=== PATIENT | female | born 1985 ===

== ENCOUNTER 2016-09-01 18:11 | Emergency (ER) | payer MEDICAID ==
[2016-09-01 18:19] VITALS: BP 94/66; PULSE 75; RESP 22; TEMP 98.4; O2SAT 96
--- NOTE | 2016-09-01 18:45 | ED PDOC ---
HPI: Female Pain Time Seen by Provider: 09/01/16 18:26 Chief Complaint (Nursing): Abdominal Pain Chief Complaint (Provider): Pelvic Pain History Per: Patient History/Exam Limitations: no limitations Onset/Duration Of Symptoms: Hrs (just prior to arrival) Current Symptoms Are (Timing): Still Present Severity: Moderate Quality Of Discomfort: Cramping Associated Symptoms: denies: Fever, Back Pain, Other (no syncope) Additional Complaint(s): Sharon Caceres is a 31 year old female, with an EGA of 8 weeks by LMP () and a past medical history inclusive of multiple previous miscarriages (2 early term, 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 Pain, described as a non-radiating cramping sensation, was reportedly severe enough to wake her from a nap. Although she denies fever, back pain, syncope or vaginal bleeding, she does report having noted some cloudiness to her urine. No prior history of ectopic . PMD: Dr. Brown Past Medical History Reviewed: Historical Data, Nursing Documentation, Vital Signs Vital Signs: Last Vital Signs Temp 98.4 F 09/01/16 18:15 Pulse 75 09/01/16 18:15 Resp 22 09/01/16 18:15 BP 94/66 L 09/01/16 18:15 Pulse Ox 96 09/01/16 18:15 - Medical History PMH: Asthma, Rheumatoid Arthritis Other PMH: multiple previous miscarriages - Surgical History Other surgeries: late term termination of - Family History Family History: States: Unknown Family Hx - Home Medications Home Medications: Ambulatory Orders Medication Instructions Recorded Ciprofloxacin HCl [Cipro] 500 mg PO BID #0 tab 11/23/14 Famotidine [Pepcid] 20 mg PO DAILY #0 tab 11/23/14 Metronidazole [Flagyl] 500 mg PO TID #0 tab 11/23/14 Ondansetron ODT [Zofran ODT] 4 mg PO Q8H PRN #0 odt 11/23/14 oxyCODONE/Acetaminophen [Percocet 1 ea PO Q4 PRN #0 tab 11/23/14 5/325 mg Tab] RX: Erythromycin 0.5% 1 applic OS Q6 #1 tube 07/20/15 [Erythromycin] ALPRAZolam [Xanax] 1 mg PO DAILY #14 tab 05/17/16 - Allergies Allergies/Adverse Reactions: Allergies Allergy/AdvReac Type Severity Reaction Status Date / Time acetaminophen [From Vicodin] Allergy Mild hives Verified 07/20/15 21:29 hydrocodone bitartrate Allergy Mild hives Verified 07/20/15 21:29 [From Vicodin] Review of Systems ROS Statement: Except As Marked, All Systems Reviewed And Found Negative Constitutional: Negative for: Fever Cardiovascular: Negative for: Other (no syncope) Genitourinary Female: Positive for: Pelvic Pain (left-sided). Negative for: Vaginal Bleeding Musculoskeletal: Negative for: Back Pain Physical Exam - Reviewed Nursing Documentation Reviewed: Yes Vital Signs Reviewed: Yes - Physical Exam Appears: Positive for: Non-toxic, No Acute Distress Head Exam: Positive for: ATRAUMATIC, NORMOCEPHALIC Skin: Positive for: Normal Color, Warm, Dry Eye Exam: Positive for: Normal appearance, PERRL ENT: Positive for: Normal ENT Inspection Neck: Positive for: Normal, Painless ROM, Supple Cardiovascular/Chest: Positive for: Regular Rate, Rhythm. Negative for: Murmur Respiratory: Positive for: Normal Breath Sounds. Negative for: Respiratory Distress Gastrointestinal/Abdominal: Positive for: Soft, Tenderness (left lower pelvic) Back: Positive for: Normal Inspection Neurologic/Psych: Positive for: Alert, Oriented - ECG O2 Sat by Pulse Oximetry: 96 (RA) Pulse Ox Interpretation: Normal Medical Decision Making Medical Decision Makin:26 Initial Impression: pelvic pain, will w/u for ectopic Initial Plan: * OB Transvaginal * Labs * Beta HCG * Upreg * Udip * Reevaluation 19:00 Patient will be endorsed over to Juan Urbina MD, pending remainder of ED workup, reevaluation and final disposition. Scribe Attestation: Documented by Sangeetha Ulrich, acting as a scribe for Anatoliy Liao III, DO. Provider Scribe Attestation: All medical record entries made by the Scribe were at my direction and personally dictated by me. I have reviewed the chart and agree that the record accurately reflects my personal performance of the history, physical exam, medical decision making, and the department course for this patient. I have also personally directed, reviewed, and agree with the discharge instructions and disposition. Disposition - Clinical Impression Clinical Impression: Threatened - Patient ED Disposition Is Patient to be Admitted: Transfer of Care - Disposition Disposition: Transfer of Care Disposition Time: 19:00 Condition: GOOD
[2016-09-01 19:10] LABS: BASO # 0.1 K/uL (0.0-0.2); BASO % 0.8 % (0.0-2.0); EOS # 0.1 K/uL (0.0-0.7); EOS % 1.6 % (0.0-4.0); LYMPH # 1.9 K/uL (1.0-4.3); LYMPH % 21.1 % (20.0-40.0); MEAN CELL VOLUME 91.6 fl (81.0-99.0); MEAN CORPUSCULAR HGB CONC 32.7 g/dL (33.0-37.0); MEAN PLATELET VOLUME 8.2 fl (7.2-11.7); MONO # 0.8 K/uL (0.0-0.8); MONO % 8.7 % (0.0-10.0); NEUT # 6.1 K/uL (1.8-7.0); NEUT % 67.8 % (50.0-75.0); RED CELL DISTRIBUTION WIDTH 13.3 % (11.5-14.5)
[2016-09-01 19:20] LABS: ALB/GLOB RATIO 1.3 (1.0-2.1); ALKALINE PHOSPHATASE 40 U/L (38-126); ALT/SGPT 18 U/L (9-52); AST/SGOT 16 U/L (14-36); BILIRUBIN,TOTAL 0.2 mg/dl (0.2-1.3); BLOOD UREA NITROGEN 15 mg/dl (7-17); CALCIUM 9.3 mg/dL (8.4-10.2); CARBON DIOXIDE 23 mmol/L (22-30); CHLORIDE 106 mmol/L (98-107); GFR AFRICAN-AMERICAN > 60; GLUCOSE,RANDOM 79 mg/dL (65-105); POTASSIUM 4.3 MMOL/L (3.6-5.0); SODIUM 142 mmol/l (132-148); TOTAL PROTEIN 6.7 G/DL (6.3-8.2)
--- NOTE | 2016-09-01 19:41 | ED PDOC ---
- Laboratory Results Result Diagrams: 09/01/16 19:05 09/01/16 19:05 Urine POC: Positive Urine dip results: Negative for: Leukocyte Esterase, Blood, Nitrate, Ketones, Glucose, Bilirubin, Protein - ECG O2 Sat by Pulse Oximetry: 96 (RA) Pulse Ox Interpretation: Normal - CT Scan/US OB Transvaginal Other Rad Studies (CT/US): Read By Radiologist, Radiology Report Reviewed Other Rad Interpretation: see MDM Medical Decision Making Medical Decision Makin:00 Patient endorsed over to me by Anatoliy Liao III DO, pending US, labs, reevaluation and final disposition. 19:57 US report reviewed: FINDINGS: Uterus: Uterus measures approximately 6.4 x 4.3 x 5.2 cm. Cervix measures approximately 3.3 cm in length. Endometrium measures approximately 1.5 mm in width. Gestation: There is a single gestational sac in the uterus.Gestational sac has mean diameter 4.1 mm. No sac and pole are not yet visible. Right ovary: Right ovary measures approximately 2.88 x 1.49 x 2.22 cm. There are multiple small follicles. There is expected blood flow on Doppler imaging Left ovary: Left ovary measures approximately 3.97 x 2.22 x 3.8 the centimeters. There are multiple small follicles. There is a corpus luteum cyst. There is expected blood flow on Doppler imaging IMPRESSION: Findings suggest intrauterine gestation too early to date; no ectopic gestation identified. Followup suggested to document development of a pole Pending urine studies. 20:37 Upreg is (+), Udip is (-). 20:50 Upon provider reevaluation patient is feeling better, is medically stable, and requires no further treatment in the ED at this time. Patient will be discharged home. Counseling was provided and all questions were answered regarding diagnosis and need for follow up with her MANAGER SPA in 2 days. There is agreement to discharge plan. Return if symptoms persist or worsen. Clinical Impression: , abdominal pain during Scribe Attestation: Documented by Sangeetha Ulrich, acting as a scribe for Juan Urbina MD. Provider Scribe Attestation: All medical record entries made by the Scribe were at my direction and personally dictated by me. I have reviewed the chart and agree that the record accurately reflects my personal performance of the history, physical exam, medical decision making, and the department course for this patient. I have also personally directed, reviewed, and agree with the discharge instructions and disposition. Disposition Counseled Patient/Family Regarding: Studies Performed, Diagnosis, Need For Followup - Clinical Impression Clinical Impression: , Abdominal pain during - POA Present On Arrival: None - Disposition Referrals: [facility] [Outside] [facility] [Outside] Disposition: Routine/Home Disposition Time: 20:25 Condition: GOOD Additional Instructions: follow up with your primary advanced manager in 2 days. return to the ED with any worsening or concerning symptoms. take vitamins. Instructions: Abdominal Pain in (ED) Forms: [facility] ED School/Work Excuse
--- NOTE | 2016-09-01 19:58 | US ---
EXAM: US , Transvaginal CLINICAL HISTORY: 31 years old, female; Pain; Other: Pelvic pain; Gestational age or lmp: 07/07/16; Additional info: 8 wks pelvic pain, HX miscarriages; beta hCG 1066.1 TECHNIQUE: Real-time transvaginal obstetrical ultrasound of the maternal pelvis and a first trimester with image documentation. Transvaginal imaging was used for better evaluation of the fetus and adnexa. EXAM DATE/TIME: 09/01/2016 6:36 PM COMPARISON: There are no prior studies for comparison. FINDINGS: Uterus: Uterus measures approximately 6.4 x 4.3 x 5.2 cm. Cervix measures approximately 3.3 cm in length. Endometrium measures approximately 1.5 mm in width. Gestation: There is a single gestational sac in the uterus.Gestational sac has mean diameter 4.1 mm. No sac and pole are not yet visible. Right ovary: Right ovary measures approximately 2.88 x 1.49 x 2.22 cm. There are multiple small follicles. There is expected blood flow on Doppler imaging Left ovary: Left ovary measures approximately 3.97 x 2.22 x 3.8 the centimeters. There are multiple small follicles. There is a corpus luteum cyst. There is expected blood flow on Doppler imaging IMPRESSION: Findings suggest intrauterine gestation too early to date; no ectopic gestation identified Followup suggested to document development of a pole
== END 2016-09-01 20:51 | disposition home or self-care (01) ==
LOC: H.ER 18:11
DX: O26.891 Other specified pregnancy related conditions, first trimester (principal); R10.2 Pelvic and perineal pain

== ENCOUNTER 2016-10-02 09:11 | Emergency (ER) | payer MEDICAID ==
[2016-10-02] MEDS ORDERED: Sodium Chloride 0.9% 1,000 ML IV STA (09:38)
[2016-10-02 09:40] VITALS: BMI 18.3
--- NOTE | 2016-10-02 09:43 | ED PDOC ---
HPI: Female Pain Time Seen by Provider: 10/02/16 09:15 Chief Complaint (Provider): Vomiting History Per: Patient History/Exam Limitations: no limitations Onset/Duration Of Symptoms: Days (2) Current Symptoms Are (Timing): Still Present Severity: Mild Additional Complaint(s): Pt. with vomiting, nausea for 2 days. Diarrhea off and on as well. Both nonbloody. Feels weak generally from it. No chest pain, abd/pelvic pain, vaginal bleeding, dysuria, dyspnea, new food or drinks, cough, congestion, runny nose, headaches. No fever. No travel. Is preg. Past Medical History Reviewed: Historical Data, Nursing Documentation, Vital Signs - Medical History PMH: Asthma - Surgical History Surgical History: No Surg Hx - Family History Family History: States: Unknown Family Hx - Social History Current smoker - smoking cessation education provided: No Alcohol: None Drugs: Denies - Home Medications Home Medications: Ambulatory Orders Medication Instructions Recorded Ciprofloxacin HCl [Cipro] 500 mg PO BID #0 tab 11/23/14 Famotidine [Pepcid] 20 mg PO DAILY #0 tab 11/23/14 Metronidazole [Flagyl] 500 mg PO TID #0 tab 11/23/14 Ondansetron ODT [Zofran ODT] 4 mg PO Q8H PRN #0 odt 11/23/14 oxyCODONE/Acetaminophen [Percocet 1 ea PO Q4 PRN #0 tab 11/23/14 5/325 mg Tab] Erythromycin 0.5% [Erythromycin] 1 applic OS Q6 #1 tube 07/20/15 ALPRAZolam [Xanax] 1 mg PO DAILY #14 tab 05/17/16 - Allergies Allergies/Adverse Reactions: Allergies Allergy/AdvReac Type Severity Reaction Status Date / Time acetaminophen [From Vicodin] Allergy Mild hives Verified 10/02/16 09:44 hydrocodone bitartrate Allergy Mild hives Verified 10/02/16 09:44 [From Vicodin] Review of Systems ROS Statement: Except As Marked, All Systems Reviewed And Found Negative Gastrointestinal: Positive for: Nausea, Vomiting, Diarrhea Physical Exam - Reviewed Nursing Documentation Reviewed: Yes Vital Signs Reviewed: Yes - Physical Exam Appears: Positive for: Well, Non-toxic, No Acute Distress Head Exam: Positive for: ATRAUMATIC, NORMAL INSPECTION, NORMOCEPHALIC Skin: Positive for: Normal Color, Warm, DRY Eye Exam: Positive for: EOMI, Normal appearance, PERRL ENT: Positive for: Normal ENT Inspection Neck: Positive for: Normal, Painless ROM Cardiovascular/Chest: Positive for: Regular Rate, Rhythm Respiratory: Positive for: CNT, Normal Breath Sounds Gastrointestinal/Abdominal: Positive for: Normal Exam, Bowel Sounds, Soft. Negative for: Tenderness Back: Positive for: Normal Inspection. Negative for: L CVA Tenderness, R CVA Tenderness Extremity: Positive for: Normal ROM. Negative for: Tenderness, Pedal Edema Neurologic/Psych: Positive for: Alert, Oriented - Laboratory Results Result Diagrams: 10/02/16 10:00 10/02/16 10:00 Interpretation Of Abn Labs: no acute - Progress ED Course And Treament: 942: On 09/01/16 pt. here and had pelvic US. SIUP. No pelvic or abd pain today. Will tx for vomiting and evaluate lytes. 1121: Stable. AAOx3. Feels much better. Tolerated PO. No nausea, vomit, diarrhea, pain. US bedside showed hr 150 approx. FU with pcp/obgyn. Continue diclegis. Disposition - Clinical Impression Clinical Impression: Hyperemesis gravidarum - Patient ED Disposition Is Patient to be Admitted: No Counseled Patient/Family Regarding: Studies Performed, Diagnosis, Need For Followup - Disposition [facility]errals[facility] - 10/03/16 Disposition: Routine/Home Disposition Time: 11:22 Condition: STABLE Additional Instructions: Return if not better in 3 days. Instructions: Hyperemesis Gravidarum (ED)
[2016-10-02 09:48] VITALS: BP 106/65; PULSE 61; RESP 20; TEMP 98; O2SAT 99
[2016-10-02 10:23] LABS: BASO % 0.3 % (0.0-2.0); EOS # 0.1 K/uL (0.0-0.7); EOS % 1.2 % (0.0-4.0); HEMATOCRIT 37.3 % (34.0-47.0); LYMPH # 1.4 K/uL (1.0-4.3); LYMPH % 13.8 % (20.0-40.0); MEAN CORPUSCULAR HEMOGLOBIN 30.9 pg (27.0-31.0); MEAN PLATELET VOLUME 8.4 fl (7.2-11.7); MONO # 0.7 K/uL (0.0-0.8); NEUT # 8.2 K/uL (1.8-7.0); NEUT % 77.7 % (50.0-75.0); RED CELL DISTRIBUTION WIDTH 13.7 % (11.5-14.5); WHITE BLOOD COUNT 10.5 K/uL (4.8-10.8)
[2016-10-02 10:44] LABS: ALB/GLOB RATIO 1.3 (1.0-2.1); ALKALINE PHOSPHATASE 34 U/L (38-126); ALT/SGPT 38 U/L (9-52); AST/SGOT 30 U/L (14-36); BILIRUBIN,TOTAL 0.6 mg/dl (0.2-1.3); BLOOD UREA NITROGEN 8 mg/dl (7-17); CALCIUM 9.2 mg/dL (8.4-10.2); CARBON DIOXIDE 22 mmol/L (22-30); CHLORIDE 106 mmol/L (98-107); GFR AFRICAN-AMERICAN > 60; GLUCOSE,RANDOM 85 mg/dL (65-105); SODIUM 138 mmol/l (132-148)
== END 2016-10-02 11:34 | disposition home or self-care (01) ==
LOC: H.ER 09:11
DX: O21.0 Mild hyperemesis gravidarum (principal); J45.909 Unspecified asthma, uncomplicated

== ENCOUNTER 2017-01-22 13:18 | Emergency (ER) | payer MEDICAID ==
--- NOTE | 2017-01-22 15:26 | OBHP ---
Datetime: 01/22/2017 15:19 IP Admit Plan: Discharge home Admit Comment, IP Provider: re-evaluation Patient denies any complains at this re-evalution. Patient has a f/u visit with EMS COORDINATOR doctor in [place] in 2 weeks patient stable to be DC home and f/u as outpatient with EMS COORDINATOR ER precautions given Pre-term labor precautions given Case discussed with Dr. Ethan Wesley resident PGY2 The patient was seen with the resident I agree with note. Patient cleared for discharge patient wa s instructed to follow-up with her PMD this week Extremities - PN: Normal Abdomen - PN: Normal Lungs - PN: Normal Heart - PN: Normal Thyroid - PN: Normal Neurologic - PN: Normal HEENT - PN: Normal General - PN: Normal FHR - Baseline A Provider: 150 EGA AdmitDate IP: 25.1 IP Chief Complaint: Maternal discomfort NICHD Accel Fetus A IP Provider: 10X10 FHR Category Provider Fetus A: Category I NICHD Decel Fetus A IP Provider: None Genitourinary Exam: Normal DTRs - PN: Normal Datetime: 01/22/2017 14:19 Pelvic Type - PN: Adequate Vital Signs Provider: Reviewed; Within Normal Limits
--- NOTE | 2017-01-22 15:27 | OBHP ---
Datetime: 01/22/2017 15:19 EGA AdmitDate IP: 25.1 Datetime: 01/22/2017 14:19 Admit Comment, IP Provider: 31 y/o ( 2 miscarriages /1 termination 2/2 malformations)0 at 25 wks 4 d of GA, CINDA: 05/06/17 possible based in first trimester US, ( LMP: 07/07/16), with PMHx of wh o presents c/o 2 days of intermittent pressure sensation under her breast bilateral, and sometimes ri ght upper back pain with deep inspiration. Denies chest pain, SOB, wheezing, cough, fevers, chills, r ecent upper/lower respiratory infection. Reports good movemnets. Denies vaginal bleeding or spo tting, LOF or uterine contractions. PMHx: Asthma OBGYN Hx:2 miscarriages /1 termination 2/2 malformations SHx: none Social Hx: denies smoking, etoh and recreatonal drugs meds: PNV O: VS:oxygen Sat 100 % in room air, HR 72/min, RR: 12/min CV: RRR, normal S1, S2 respiratory : CTA B/L, no wheezing, rales or rhonchi abdomen: Gravid, no tender to palpation, no rigidity or guarding noted. ext: no edema, no calves tenderness noted, Nathalie's sign neg b/l, DP presents and bilateral INSET CUTTER: alert, awake , and oriented x 3 monitor: FHR 150/min, no uterine contractions noted A: 31 y/o , h/o Asthma @ 25 w 4 d, with underbreast pressure sensation. P: observation continuous external monitor case discussed with Dr. Ethan Wesley resident PGY2 The patient was seen with the resident I agree with the note. Patient for observation
[2017-01-23 20:35] VITALS: BP 102/52; PULSE 71; RESP 20; TEMP 98.7; O2SAT 100
== END 2017-01-22 16:35 | disposition home or self-care (01) ==
LOC: H.EROB2 13:18
DX: O47.03 False labor before 37 completed weeks of gestation, third trimester (principal); Z3A.25 25 weeks gestation of pregnancy; O09.92 Supervision of high risk pregnancy, unspecified, second trimester; J45.909 Unspecified asthma, uncomplicated

== ENCOUNTER 2017-03-16 22:38 | Emergency (ER) | payer MEDICAID ==
[2017-03-16 23:11] VITALS: BMI 37.0
--- NOTE | 2017-03-20 13:56 | OBHP ---
Datetime: 03/16/2017 23:55 IP Adm Impression: , intrauterine IP Chief Complaint Other: Epistaxis Admit Comment, IP Provider: 31 y/o female at 32.5wks gestation (CINDA:05/02 as per 9 wk U/S) pre sents to Joselito with complaints of frequent nosebleeds associated with headache, SOB, dizziness and seeing spots" for the past 48 hours. Patient denies contractions, vaginal loss of fluid, vaginal b leeding and reports good movement. Denies chest pain, dysuria, calf pain, cough, fever, chills, recent URI, or head or abdominal trauma. PNC: Unremarkable OBHx: 2 SOB 1st trimester, 1 termination due to abnormality PMHx: Denies SurgHx: Denies Meds: PNV Allergies: Hydrocodone (rash) Social: Denies smoking, drinking alcohol, or drug use Triage Vitals: BP 103/69, HR 92, afebrile. O2 sat 100% on Rm air General: NAD Cardio: RRR, normal S1, S2, no murmurs Lungs: Clear to auscultation BL Abdomen: Gravid, NT, no CVA tenderness Extremities: Symmetrical, No LE edema, Homans negative MARINE DIESEL TECHNICIAN: AAOx3 Heart Monitor: HR 140's, moderate variability, +accelerations, no decelerations Assessment: IUP at 32.5 weeks gestation presents with episodes of epistaxis associated with headac hes, dizziness, and SOB. Maternal vital signs within normal limits. Reassuring heart tracings. Pt has no OB complaints. Plan: Will transfer patient to ED to be medically evaluated as there is no OBGYN concerning signs or symptoms. Discussed case with OB Attending Dr. Peyton Juarez, PGY1 OB attending addendum: Agree with above assessment and plan Pelvic Type - PN: Adequate Extremities - PN: Normal Abdomen - PN: Normal Back - PN: Normal Breast - PN: Normal Lungs - PN: Normal Heart - PN: Normal Thyroid - PN: Normal Neurologic - PN: Normal HEENT - PN: Normal General - PN: Normal FHR - Baseline A Provider: 120 EGA AdmitDate IP: 32.5 IP Chief Complaint: Other NICHD Variability Prov Fetus A: Moderate 6-25bpm NICHD Accel Fetus A IP Provider: 15X15 FHR Category Provider Fetus A: Category I NICHD Decel Fetus A IP Provider: None Genitourinary Exam: Normal DTRs - PN: Normal
[2017-03-20 17:53] VITALS: BP 103/69; PULSE 92; RESP 16; TEMP 98.3; O2SAT 99
== END 2017-03-16 23:35 | disposition home or self-care (01) ==
LOC: H.EROB2 22:38
DX: O26.93 Pregnancy related conditions, unspecified, third trimester (principal); R04.0 Epistaxis; R51 Headache; R42 Dizziness and giddiness; R06.02 Shortness of breath; Z3A.32 32 weeks gestation of pregnancy

== ENCOUNTER 2017-04-25 01:23 | Inpatient (IN) | payer MEDICAID ==
[2017-04-25 02:02] VITALS: BMI 36.3
[2017-04-25 04:06] VITALS: O2SAT 100
[2017-04-25 04:38] LABS: BASO % 0.2 % (0.0-2.0); EOS # 0.1 K/uL (0.0-0.7); LYMPH % 15.6 % (20.0-40.0); MEAN CELL VOLUME 88.4 fl (81.0-99.0); MEAN CORPUSCULAR HGB CONC 32.8 g/dL (33.0-37.0); MEAN PLATELET VOLUME 10.3 fl (7.2-11.7); MONO # 1.2 K/uL (0.0-0.8); MONO % 8.9 % (0.0-10.0); NEUT # 9.6 K/uL (1.8-7.0); NEUT % 74.3 % (50.0-75.0); RED CELL DISTRIBUTION WIDTH 14.3 % (11.5-14.5)
[2017-04-25] MEDS: Lactated Ringer's 1,000 ML IV SCH ×2 (06:00→06:15)
[2017-04-25] MEDS ORDERED: Fentanyl/Bupivacaine HCl 250 ML EPI ONE (06:30)
[2017-04-25] MEDS ORDERED: Lidocaine 1% Inj (20ml) ONE (07:44)
--- NOTE | 2017-04-25 07:52 | OBADHP ---
Datetime: 04/25/2017 03:43 Admit Comment, IP Provider: 31 y/o female , IUP@38.3 wks gestation (CINDA:05/06 as per 9 wk U/S) p resents to TRAN c/o SROM and LOF. Patient admits occasional CTX but denies any vaginal bleeding and r eports good movement. Denies chest pain, dysuria, calf pain, cough, fever, chills, recent URI, or head or abdominal trauma. PNC: Alona Kathleen at [place] PNL: GBS unknown. No records available. PNI: No issue so far with this OBHx: 2 SOB 1st trimester, 1 termination due to abnormality PMHx: Denies SurgHx: Denies Meds: PNV Allergies: Hydrocodone (rash) Social: Denies smoking, drinking alcohol, or drug use FH: DM, HTN and cancer Triage Vitals: BP 98/47, HR 92, afebrile. O2 sat 100% on Rm air FHR:150 PE: General: NAD Cardio: RRR, normal S1, S2, no murmurs Lungs: Clear to auscultation BL Abdomen: Gravid, NT, no CVA tenderness Extremities: Symmetrical, No LE edema, Homans negative PROGRAM COORDINATOR: AAOx3 Heart Monitor: HR 150's, moderate variability, +accelerations, no decelerations Pelvic exam: 1cm/40/high Spec exam: + Gross Pulling A/P: 31 y/o female , IUP@38.3 wks gestation (CINDA:05/06 as per 9 wk U/S) presents to TRAN c/o SROM a nd LOF. - Admit to L_D - Labs - Initiate Labor augmentation protocol - Cytotec 50mcq PO Q4 - Monitor VS/FHT/NST/CTX - Get records in morning Case discussed with Dr. Beth --- Patricio Valenzuela, PGY-1 OB attending addendum: Patient seen and examined by me with Dr. Valenzuela. Agree with above assessment and plan. Indications for admission and induction discussed with patient. Pelvic Type - PN: Adequate Extremities - PN: Normal Abdomen - PN: Normal Back - PN: Normal Breast - PN: Not Done Lungs - PN: Normal Heart - PN: Normal Thyroid - PN: Normal Neurologic - PN: Normal HEENT - PN: Normal General - PN: Normal FHR - Baseline A Provider: 150 Amniotic Fluid Color, Provider: Clear Membranes, Provider: Ruptured Comments, ACOG Physical Exam: GBS unknown Get labs in morning Cytotec 50mcq Q4H U/S: Cephalic presentation (Annotations: Data stored by CPN on behalf of user) Pool Provider: Positive Vital Signs Provider: Reviewed; Within Normal Limits IP Chief Complaint: Suspected ruptured membranes NICHD Variability Prov Fetus A: Moderate 6-25bpm NICHD Accel Fetus A IP Provider: 15X15 FHR Category Provider Fetus A: Category I (Annotations: Data stored by CPN on behalf of user) NICHD Decel Fetus A IP Provider: None Dilatation, Provider: 1 Effacement, Provider: 40 Station, Provider: -3 Genitourinary Exam: Normal DTRs - PN: Normal EGA AdmitDate IP: 38.3 IP Adm Impression: Term, intrauterine IP Admit Plan: Admit to unit; Initiate labor augmentation protocol Datetime: 04/25/2017 03:35 Contraction Comments Provider: none Datetime: 03/16/2017 23:55 IP Chief Complaint Other: Epistaxis
--- NOTE | 2017-04-25 09:24 | OBPN ---
Datetime: 04/25/2017 09:00 IP Progress Impression: Normal progression of labor; Reassuring heart rate IP Informed Consent Obtain: Vaginal Delivery; Risks, Benefits and Alternatives Discussed IP Progress Plan: Continue present management Pool Provider: Positive Membranes, Provider: Ruptured Amniotic Fluid Color, Provider: Clear FHR - Baseline A Provider: 140 Presentation-Admit: Vertex IP Progress Note Comment: OB Hospitalist note: just rec'd sign out from previous hospitalist... Pt had PNC in [facility]. Records not available. She staes that her doctor told her that GBS neg. 40l b wt gain acc to pt/no recent sonograms done for EFW. Discussoin with pt about poss LGA (difficult to etime with pbesity...she understands and still wants to labor) She rec'd epidural and Cytotec. At 8:20am she had decels and checked by Dr Beth noted to be f ully dilated. A: Second stage of labor PLAN: given Terbulatine for hyperstimulation. observe progress observe labor progress/. Epidural off NICHD Accel Fetus A IP Provider: 10X10 FHR Category Provider Fetus A: Category II NICHD Variability Prov Fetus A: Moderate 6-25bpm Dilatation, Provider: 10 Effacement, Provider: 100 Station, Provider: 0 NICHD Decel Fetus A IP Provider: Variable Datetime: 04/25/2017 03:43 Vital Signs Provider: Reviewed; Within Normal Limits Datetime: 04/25/2017 03:35 Contraction Comments Provider: none
[2017-04-25] MEDS: Oxytocin 30 UNITS in Sodium Chloride 0.9% 500 ML IV SCH ×7 (10:05→13:27)
[2017-04-25] MEDS ORDERED: Benzocaine/Menthol SPRAY TOP PRN ×2 (10:47→12:07)
[2017-04-25] MEDS ORDERED: Oxycodone/Acetaminophen 5/325 mg Tab PO PRN ×2 (10:47→12:07)
[2017-04-25] MEDS ORDERED: Oxycodone/Acetaminophen 5/325 mg Tab PO ONE ×2 (12:01→12:07)
[2017-04-25] MEDS ORDERED: Oxytocin 30 UNITS in Sodium Chloride 0.9% 500 ML IV SCH (12:07)
--- NOTE | 2017-04-25 17:09 | OBDS ---
DELIVERY PERSONNEL Delivery Doctor: Rajesh Sifuentes DO Bi Analyst: Sherlyn Rocha RN Resident: Saige alejandro MD MATERNAL INFORMATION Delivery Anesthesia: Epidural Medications in Delivery: Pitocin 30 mu in 500cc of LR Estimated Blood Loss (ml): 250 Placenta Cultured: No Maternal Complications: None RN Comments: Atraumatic of a viable babygirl with Lusty cry assigned 9/[address] Halie delarosa Skin to skin initiated. Patient tolerated delivery well. Patient and infant recoverying well. Provider Comments: Prepartum Dx: at term Post Dx: same with delivers of livce female infant, apgars 9,9 Normal spontaneous vaginal delivery of live female infant, apgars 9.9, position ROBIN over intact pe rineum, with epidural anesthesia. Head was delivered in a controlled fashion, loose nuchal cord noted, which weas easily reduced. An terior and posterior shoulders delivered without difficulty. Cord was clamped and cut at the perineum by FOB Spontaneous delivery of placenta with 3-vessel cord . Laceration: 2nd degree and right superficial labial laceration ( see repair note) Estimated blood loss: 200mL Dr. Sifuentes supervised delivery Eliseo PGY3' OB Hospitalist note: With PGY3, I was present and attended delivery. DELMERNDO LABOR SUMMARY EDC: 05/06/2017 00:00 No. Babies in Womb: 1 Attempted: No Labor Anesthesia: Epidural LABOR INFORMATION Reason for Induction: Not Applicable Onset of Labor: 04/25/2017 03:00 Complete Dilatation: 04/25/2017 08:00 Cervical Ripening Agents: Cytotec @ Oxytocin: N/A Group B Beta Strep: Negative Antibiotics # of Doses: none Steroids Given: None Reason Steroids Not Administered: Not Applicable Other Reason Not Administered: Not reqruied MEMBRANES Membranes Rupture Method: Spontaneous Rupture of Membranes: 04/24/2017 00:30 Length of Rupture (hrs): 33.60 Amniotic Fluid Color: Clear Amniotic Fluid Amount: Small Amniotic Fluid Odor: None STAGES OF LABOR Stage 1 hrs: 5 Stage 1 min: 0 Stage 2 hrs: 2 Stage 2 min: 6 Stage 3 hrs: 0 Stage 3 min: 14 Total Time in Labor hrs: 7 Total Time in Labor min: 20 VAGINAL DELIVERY Episiotomy: None Laceration Extension: Second Degree Laceration Type: Perineal; Vaginal Laceration Repair: Yes Laceration Repair Note: right labial laceration midline perineal 2nd degree lacertaion repaired with 2-0 vicryl. Anestheia: local Initial Vag Sponge Count: 10 Final Vag Sponge Count: 10 Initial Vag Sharps Count: 2 Final Vag Sharps Count: 2 Sponge Count Correct: Yes Sharps Count Correct: Yes Count Comment: Count correct BABY A INFORMATION Delivery Date/Time: 04/25/2017 10:06 Method of Delivery: Vaginal Born in Route : No : N/A Forceps: N/A Vacuum Extraction: N/A Shoulder Dystocia : No SHOULDER DYSTOCIA BABY A Delivery Date/Time: 04/25/2017 10:06 PRESENTATION/POSITION BABY A Presentation: Cephalic Cephalic Presentation: Vertex Vertex Position: Left Occipital Anterior Breech Presentation: N/A PLACENTA INFORMATION BABY A Placenta Delivery Time : 04/25/2017 10:20 Placenta Method of Delivery: Spontaneous Placenta Status: Delivered SCORES BABY A Heart Rate 1 min: >100 bpm Resp Effort 1 min: Good Cry Reflex Irritability 1 min: Cough or Sneeze or Pulls Away Muscle Tone 1 min: Active Motion Color 1 min: Body [place], Extremities Blue Resuscitation Effort 1 min: N/A SCORE 1 MIN: 9 Heart Rate 5 min: >100 bpm Resp Effort 5 min: Good Cry Reflex Irritability 5 min: Cough or Sneeze or Pulls Away Muscle Tone 5 min: Active Motion Color 5 min: Body [place], Extremities Blue Resuscitation Effort 5 min: N/A SCORE 5 MIN: 9 INFANT INFORMATION BABY A Gestational Age at Delivery: 38.0 Gestational Status: Term Outcome : Liveborn Condition : Stable Infant Sex: Female IDENTIFICATION/MEDS BABY A ID Band Number: [id number] ID Band Location: Right Leg; Right Arm WEIGHT/LENGTH BABY A Infant Birthweight (gms): 2745 Infant Weight (lb): 6 Weight (oz): 1 Infant Length Inches: 19.25 Infant Length cms: 48.9 CORD INFORMATION BABY A No. Cord Vessels: 3 Nuchal Cord : Around Neck x1, Loose Cord Blood Taken: No Suction: Mouth; Nose
[2017-04-26] MEDS ORDERED: Pneumococcal 23-Valent Vaccine IM ONE (10:00)
[2017-04-26 10:41] LABS: HEMATOCRIT 33.7 % (34.0-47.0); MEAN CELL VOLUME 88.2 fl (81.0-99.0); MEAN CORPUSCULAR HGB CONC 32.9 g/dL (33.0-37.0); RED CELL DISTRIBUTION WIDTH 14.1 % (11.5-14.5); WHITE BLOOD COUNT 14.1 K/uL (4.8-10.8)
--- NOTE | 2017-04-26 16:04 | OBPPN ---
Datetime: 04/26/2017 06:37 PP Pain Prov: Within normal limits PP Nausea Prov: Denies PP Flatus Prov: Yes PP BM Prov: Yes PP Heart Prov: Normal PP Lungs Prov: Normal PP Abdomen/Uterus Prov: Normal PP Lochia Prov: Normal PP Vulva/Perineum Prov: Normal PP Extremities Prov: Normal PP C/S Incision Prov: Not Applicable PP Progress Prov: Normal PP Impression Prov: Normal progression PP Plan Prov: Continue present management PP Progress Note Prov: PPD1 S: pt seen and examined bedside this AM. PPD1, s/p NVD. No acute overnight events. Admits mild diego n. Pt is eating regular diet. Ambulating, voiding w/out any difficulty. Patient is her baby. +/+ gas, BM. Denies fever, chills, headache, chest pain, dyspnea, palpitations, n/v/d/c and rem ains afebrile. O: VS stable GEN: NAD Cardio: S1S2 no M/G/R Resp: vesicular breathing b/l Abdomen: no tenderness to palpation. BS+, Fundus is firm, at the umbilicus Neuro: AAO x 3 Ext: no edema noted, no calf tenderness Assessment/Plan: 31 y/o female , delivered @ 38.3 wks to a female infant via NVD on 04/25/17. Doing well PPD1. OOB with caution Percocet 5/325mg 1-2 tablets po q6 for mod/sev pain Ibuprofen 600mg 1 tab Pneumo Vaccine PPV23 today Encourage and ambulation Senakot 17.2mg PO qHS --- Patricio Valenzuela, PGY I The patient was seen with the resident I agree with the note IP PP Procedures: None Vital Signs Provider PP: Reviewed; Within Normal Limits
[2017-04-27 22:41] VITALS: BP 120/79; PULSE 70; RESP 20; TEMP 98.2
== END 2017-04-27 15:25 | disposition home or self-care (01) | DRG 372 ==
LOC: H.EROB2 01:23 → H.L&D 03:06 → H.OB/GYN 11:45
PROVIDERS: ADMIT Obstetrics & Gynecology; ATTEND Obstetrics & Gynecology
PROC: 0KQM0ZZ Repair Perineum Muscle, Open Approach (ICD-10-PCS; principal; 2017-04-25)
PROC: 10E0XZZ Delivery of Products of Conception, External Approach (ICD-10-PCS; 2017-04-25)
PROC: 4A1HXCZ Monitoring of Products of Conception, Cardiac Rate, External Approach (ICD-10-PCS; 2017-04-25)
DX: O70.1 Second degree perineal laceration during delivery (principal); O16.4 Unspecified maternal hypertension, complicating childbirth; O24.92 Unspecified diabetes mellitus in childbirth; E11.9 Type 2 diabetes mellitus without complications; I10 Essential (primary) hypertension; O99.52 Diseases of the respiratory system complicating childbirth; Z37.0 Single live birth; J45.909 Unspecified asthma, uncomplicated; O69.81X0 Labor and delivery complicated by cord around neck, without compression, not applicable or unspecified; R04.0 Epistaxis; Z3A.38 38 weeks gestation of pregnancy